=== PATIENT | male | born 1975 | race Caucasian/White ===

== ENCOUNTER 2017-07-11 19:04 | Observation (INO) | payer BC, OTHER ==
[2017-07-11] MEDS ORDERED: ASPIRIN 81 MG TAB.CHEW ONE (19:13)
[2017-07-11] MEDS ORDERED: ASPIRIN 81 MG TAB.CHEW PO ONE (19:33)
[2017-07-11 19:45] LABS: Hematocrit 41.5 % (42.0-52.0); Hemoglobin 14.8 gm/dL (13.5-18.0); Mean Corpuscular Hgb Conc 35.7 g/dl (32-36); Mean Platelet Volume 8.3 fl (6.0-9.5); Platelet Count 305 K/mm3 (150-450); Red Blood Count 4.77 M/mm3 (4.7-6.0); Red Cell Distribution Width 11.7 % (11.5-14.0); White Blood Count 11.3 K/mm3 (4.0-10.5)
[2017-07-11 19:47] LABS: Total Cells Counted 100
--- NOTE | 2017-07-11 19:54 | ERNOTE ---
Neuro HPI ER Record Date of Service: 07/11/17 Presenting Symptoms: weakness Time Seen by Provider: 07/11/17 19:20 Source: patient Exam Limitations: no limitations Immunizations: IMMUNIZATION HX Immunizations Up to Date Yes History of Influenza Vaccine No Allergies/Adverse Reactions: Allergies Allergy/AdvReac Type Severity Reaction Status Date / Time No Known Allergies Allergy Unverified 04/24/15 17:19 Home Medications: HOME MEDICATIONS Prilosec 08/08/16 [Last Taken Unknown] Ibuprofen 04/23/17 [Last Taken Unknown] - History of Present Illness Narrative: Pt. comesin with c/o weakness and pain of the R side of his body that lasted for 30 minutes then resolved then had weakness and pain on his L side and had a 5 minute episode of chest pain, pt. then had an episode on the R side again that lasted for over an hour. Each time the weakness comes on gradually then resolves gradually. Each time it is accompanied by pain. 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 Onset: gradual onset, intermittent, cannot confirm onset, gone now Severity: moderate - Character of Deficits New weakness: Present: RUE, RLE, LUE, LLE. Absent: facial (rt), facial (lt), general (diffuse), ascending Altered sensation: Absent: RUE, RLE, LUE, LLE, facial (rt), facial (lt) Additional Deficits: Present: vision problems, difficulty swallowing, decrease ability to stand, decrease ability to walk, weakness, off balance, cannot walk, cannot stand. Absent: impaired speech, falling, bed-ridden Baseline Cognition: Present: alert, oriented x 4 Baseline Gait: Present: walks w/o assistance Associated Symptoms: Reports: trouble concentrating, trouble thinking, other - anxiety. Denies: fever/chills, chest pain, neck/back pain, headache, fainting, seizure, altered mental status, disoriented, confused, agitated, decreased responsiveness Prior Treament: Reports: recently seen, treated by physician. Denies: recently hospitalized, similar symptoms before, currently on antibiotics Review of Systems - Review of Systems Constitutional: Present: weakness EYE: Present: no symptoms reported ENT: Present: no symptoms reported Respiratory: Present: no symptoms reported. Absent: shortness of breath, cough , wheezing Cardiology: Present: no symptoms reported. Absent: chest pain, palpitations, edema Gastrointestinal/Abdominal: Present: no symptoms reported. Absent: nausea, vomiting, diarrhea Genitourinary: Present: no symptoms reported Musculoskeletal: Present: muscle pain. Absent: muscle stiffness, neck pain, joint pain, joint swelling Skin: Present: no symptoms reported. Absent: rash, dryness, lesions, lumps Neurological: Present: no symptoms reported Endocrine: Present: no symptoms reported Hematologic/Lymphatic: Present: no symptoms reported Psych: Present: anxiety All Other Systems: All systems neg except as marked - Patient's Past Medical History Patient History - Medical: Anxiety, GERD, Other - vision difficulty L eye Patient History - Cardiac/Respiratory: No pertinent hx Patient History - Cancer: No Hx of Cancer Patient History - Surgical Procedures: No surgical history Patient History - Other: None - Social History Living Situations: home Abuse History: No History of abuse Psych History: No pertinent hx, Hx of Anxiety Smoking Status: Current some day smoker Alcohol Use: rarely Drug Use: none - Immunizations Immunizations Up to Date: Yes History of Influenza Vaccine: No Physical Exam - Physical Exam General Appearance: Present: wd/wn, alert, no apparent distress Head Exam: Present: normal inspection, no evidence of injury Eye Exam: Normal inspection: right, Other: left - fundoscopic exam reveals abnormality of optic nerve, not new for pt. Ears, Nose, Throat: Present: normal ENT inspection Neck: Present: normal inspection, nontender, supple, full range of motion Respiratory: Present: no respiratory distress, normal breath sounds, no accessory muscle use, chest nontender Cardiovascular/Chest: Present: regular rate, rhythm, no murmur, normal peripheral pulses Gastrointestinal/Abdominal: Present: normal bowel sounds, nontender, nondistended, soft, no organomegaly Back Exam: Present: normal inspection Extremity Exam: Present: normal inspection Neurological Exam: Present: alert, oriented, normal mood/affect, motor weakness - RUE and RLE str 3/4 LUE and LLE str 4/4 Skin Exam: Present: normal color, warm/dry [place] Coma Scale - Assess Eye Opening: Spontaneous Motor: Obeys Commands Verbal: Oriented - Total Coma Scale Total: 15 Initial Stroke Assessment - Date/Time of assessment Stroke Scale Date: 07/11/17 Stroke Scale Time: 19:52 - NIH Stroke Scale Level of Consciousness: Alert LOC Questions (Year and Age): Answers both correctly LOC Commands (open/close eyes/fist): Performs both correctly Lateral Gaze Paresis: None Visual Field Loss: Partial hemianopsia - L eye Facial Palsy: Normal movement Right Arm Motor (10 sec hold): No drift Left Arm Motor (10 sec hold): No drift Right Leg Motor (5 sec hold): No drift Left Leg Motor (5 sec hold): No drift Limb Ataxia (finger/nose heel/wiggins): Absent Sensory Loss (pinprick arms/legs/face): No sensory loss Language Aphasia (description/naming/reading): No aphasia; normal Dysarthria (speech clarity): Normal articulation Neglect Inattention (visual/tactile/auditory/spatial/person): No neglect Initial Stroke Scale Score:: 1 - Stroke Risk Assessment Stroke Risk Assessment Level: 1-4 Mild Impairment Stroke Inclusion/Exclusion Cri - Inclusion Questions: Yes Onset of symptoms <3 1/2 hours of admission to ETC: No - Exclusion Questions: Major symptoms rapidly improving: Yes Seizure at onset of stroke: No SBP>185; DBP>110 at time treatment is to begin: No Patient received Heparin or Coumadin within 48 hours: No Patient has elevated PTT or Protime/INR: No Stroke, head injury, major surgery, serious trauma in 3 mon.: No Previous intracranial hemmorhage: No Recent GA: No Known AV malformation or aneurysm: Yes Blood glucose <50mg/dl or >400mg/dl: No NIHSS Score <4 or >22 performed by physician: No ED Progress - Date and Time Seen: Date and Time: 07/11/172029 discussed case with Dr Nunez who recommends pt. to get CT tonight to rule out any acute abnormality and then be admitted for observation and get an MRI tomorrow as pt. likely is having MS flair (that is undiagnosed as of yet ) and then possibly start steroids and that the admitting doctor can consult the outpatient neurologist tomorrow but states that these doctors don't have privileges but can do a face to face consult with the attending. [id number] Discussed the above discussion with Dr denise as he is the physician on tomorrow to ensure that he is comfortable with this plan or if he would like us to follow a different plan and he agrres that pt. needs admission here and requested that we start pt. on solumedrol 25mg once tonight and 250mg once in the am and then he will see pt. in am and determine further care 2144 Discussed case with kaylin and she accepts admission and agrees with POC 07/11/17 22:03 - Results and Orders Patient's Lab Results:: I have reviewed the patient's lab results. - Vital Signs Patient's Vital Signs:: I have reviewed the patient's vital signs. Vital Signs: Vital Signs 07/11/17 07/11/17 19:12 19:37 Temperature 36.7 C Pulse Rate 99 93 Respiratory 15 14 Rate Blood Pressure 133/87 123/78 O2 Sat by Pulse 98 97 Oximetry - EKG EKG: NSR EKG read: Interp. by me - CT/Ultrasound CT/Ultrasound Narrative: CT head negative for any acute abnormality. - Progress/Reassessment Chief Complaint: Chest Pain Progress:: Unchanged Departure Clinical Impression: Demyelinating disease, Weakness - Departure Disposition: [facility] Condition: Fair Referrals: SARAH PARADA [Primary Care Provider] -
[2017-07-11 20:02] LABS: ALT 55 U/L (19-67); AST 30 U/L (0-48); Albumin * 3.7 gm/dl (3.4-5.0); Alkaline Phosphatase * 94 U/L (50-170); Anion Gap 9.8 mmol/L (6.8-13.8); BUN/Creatinine Ratio 14.5 (9.0-21.6); Bilirubin, Total 0.7 mg/dL (0.0-1.1); Blood Urea Nitrogen 17 mg/dL (6-23); Ca. Corrected For Albumin 8.3 mg/dL (8.4-10.2); Calcium * 8.4 mg/dL (7.9-10.9); Chloride 99 mmol/L (97-106); Glucose * 112 mg/dL (70-110); Potassium 3.8 mmol/L (3.4-4.6); Sodium 136 mmol/L (132-142); Total Protein 7.1 gm/dL (6.2-8.2)
[2017-07-11 20:05] LABS: Troponin I Less than 0.017 ng/ml (0.00-0.10)
[2017-07-11 20:09] LABS: Atypical (Reactive) Lymph 5 % (0-2); Basophil 1 % (0-1); Lymphocyte 48 % (20-51); Monocyte 6 % (0-9); Neutrophil 40 % (42-75); Neutrophil # 4.5 K/mm3 (1.3-6.0)
[2017-07-11 20:10] LABS: Dohle Bodies Trace; Platelet Estimate Normal (NORMAL); RBC Morphology Normal (NORMAL); Toxic Granulation Trace
[2017-07-11 21:31] LABS: Urine Bilirubin Negative (NEGATIVE); Urine Blood Negative /ul (NEGATIVE); Urine Ketone Negative (NEGATIVE); Urine Nitrite Negative (NEGATIVE); Urine Protein Negative (NEGATIVE); Urine Urobilinogen Normal (NORMAL)
[2017-07-11] MEDS ORDERED: METHYLPREDNISOLONE SOD SUCC/PF 125 MG/2 ML VIAL IV ONE (21:39)
[2017-07-11 21:46] LABS: Urine Appearance Clear; Urine Bacteria TRACE; Urine Color Yellow; Urine RBC None Seen /hpf (0-5); Urine WBC None Seen /hpf (0-5)
[2017-07-11] MEDS ORDERED: METHYLPREDNISOLONE SOD SUCC/PF 125 MG/2 ML VIAL ONE (21:47)
[2017-07-11 21:54] LABS: Cocaine Ur Negative (NEGATIVE); Urine Barbiturate Negative (NEGATIVE); Urine Benzodiazepines Negative (NEGATIVE); Urine Opiates Negative (NEGATIVE); Urine PCP Negative (NEGATIVE); Urine THC Negative (NEGATIVE)
--- NOTE | 2017-07-11 23:33 | HP ---
Chief Complaint - Chief Complaint Date of Service: 07/11/17 Time of Service: 23:33 Chief Complaint: Double vision, suddenly unable to walk History of Present Illness: 42 years old white male adm to the hospital with reports of sudden onset intermittent weakness, unable to walk and double vision left eye. PMh significant for anxiety, depression, GERD, granuloma annular and optic neuritis. per pt been dragging right leg due to weakness. The weakness would self resolved within 30 minutes only to re-occur in left leg. This was on- going most of the day for several hours. pt would attempt to stand and he would stumble over himself. Pt was concerned and brought him to the ER. He was recently diagnoses with demylenating disease, due to an earlier diagnosis of optic neuritis (in June 2016). He was instructed to have appt with specialist in [place] next month. - Patient's Past Medical History Patient History - Medical: Anxiety, Depression, GERD, Other - Optic neuritis, granuloma annulare Patient History - Cardiac/Respiratory: No pertinent hx, Other Patient History - Cancer: Other Patient History - Surgical Procedures: Orthopedic - Right knee meniscus repair, right shoulder arthroscopy Patient History - Other: None - Family History Mother Family History - Medical: Family History - Cardiac/Respiratory: Aneurysm - AAA, Coronary Heart Disease, Other Father Family History - Medical: , Diabetes Type 2 Family History - Cardiac/Respiratory: Coronary Heart Disease - s/p CABG, aortic valve replacement, Other Family History - Cancer: Lung, Prostate - Social History Living Situations: spouse Abuse History: No History of abuse Psych History: Hx of Anxiety, Hx of Depression Does anyone smoke in the home?: Yes Smoking Status: Current every day smoker Have you smoked in the past 12 months: Yes Do you dip or chew tobacco: No Patient requests Smoking Cessation Consult: Yes Initiate information on Smoking Cessation: Yes Alcohol Use: none Drug Use: none - Immunizations Immunizations Up to Date: Yes History of Influenza Vaccine: No Review Of Systems (GEN) - Review of Systems Generalized/Overall Review: Present: Weakness - RUE and RLE intermittent weakness thats unilateral. EENTM: Present: Eye Pain, Blurred Vision, Double Vision, Other - peripheral vision loss Respiratory: Present: No Symptoms Reported Cardiac: Present: No Symptoms Reported Abdominal: Present: No Symptoms Reported Genitourinary: Present: No Symptoms Reported Musculoskeletal: Present: Other - sudden weakness and unable to walk, Neurological: Present: Anxiety, Weakness - unilateral weakness thats been intermittent Skin: Present: No Symptoms Reported Endocrine: Present: No Symptoms Reported Immunizations: IMMUNIZATION HX Immunizations Up to Date Yes History of Influenza Vaccine No Allergies/Adverse Reactions: Allergies Allergy/AdvReac Type Severity Reaction Status Date / Time No Known Allergies Allergy Unverified 04/24/15 17:19 Home Medications: HOME MEDICATIONS Ibuprofen 800 mg PO Q6H PRN 07/11/17 [Last Taken Unknown] Omeprazole [Prilosec] 20 mg PO DAILY 07/11/17 [Last Taken Unknown] hydrOXYzine PAMOATE [Vistaril] 50 mg PO DAILY PRN 07/12/17 [Last Taken Unknown] Exam - Exam Vital Signs: Vital Signs - Last Taken Temp 36.5 C 07/11/17 22:26 Pulse 75 07/11/17 23:20 Resp 18 07/11/17 22:26 BP 115/90 07/11/17 22:26 Pulse Ox 96 07/11/17 22:26 Constitutional: Present: Alert, Oriented x3, Cooperative, No distress, Young ENT Exam: Present: hearing grossly normal Eye Exam: left eye: other - double vision, pain with eye movement, peripheral vision loss Neck: Present: full range of motion Back Exam: Present: normal inspection, no CVA tenderness Breasts: Present: Exam deferred Respiratory: Present: chest non-tender, lungs clear, normal breath sounds, no respiratory distress Cardiovascular/Chest: Present: normal peripheral pulses, regular rate, rhythm, no chest tenderness, no edema Peripheral Pulses: dorsalis-pedis (R): 3+, dorsalis-pedis (L): 3+ Abdomen: Present: Normal bowel sounds, soft, nontender, nondistended, no rebound tenderness /Rectal: Present: Exam deferred Extremity: Present: normal inspection, no pedal edema, calf tenderness - Right, other - RUE strength 3/5 RLE strength 3/5 weakness more so on right than left. Skin Exam: Present: normal color, warm/dry, no cyanosis Neurologic: Present: alert, normal mood/affect, oriented x 3, abnormal gait, motor weakness Appearance: Present: appropriate appearance, appropriate insight Eye contact: Present: cooperative, good eye contact Thoughts: Present: normal thought pattern, no apparent hallucination Diagnostic Studies: Laboratory Results WBC 11.3 K/mm3 (4.0-10.5) H 07/11/17 19:43 RBC 4.77 M/mm3 (4.7-6.0) 07/11/17 19:43 Hgb 14.8 gm/dL (13.5-18.0) 07/11/17 19:43 Hct 41.5 % (42.0-52.0) L 07/11/17 19:43 MCV 87.0 fl (78-100) 07/11/17 19:43 MCH 31.0 pg (27-31) 07/11/17 19:43 MCHC 35.7 g/dl (32-36) 07/11/17 19:43 RDW 11.7 % (11.5-14.0) 07/11/17 19:43 Plt Count 305 K/mm3 (150-450) 07/11/17 19:43 MPV 8.3 fl (6.0-9.5) 07/11/17 19:43 Neutrophils % (Manual) 40 % (42-75) L 07/11/17 19:43 Lymphocytes % (Manual) 48 % (20-51) 07/11/17 19:43 Monocytes % (Manual) 6 % (0-9) 07/11/17 19:43 Basophils % (Manual) 1 % (0-1) 07/11/17 19:43 Neutrophils # (Manual) 4.5 K/mm3 (1.3-6.0) 07/11/17 19:43 Lymphocytes # (Manual) 5.4 k/mm3 (1.5-3.5) H 07/11/17 19:43 Monocytes # (Manual) 0.7 k/mm3 (0.0-1.0) 07/11/17 19:43 Basophils # (Manual) 0.1 k/mm3 (0.0-0.1) 07/11/17 19:43 Atypic/Reactive Lymphs 5 % (0-2) H 07/11/17 19:43 Toxic Granulation Trace 07/11/17 19:43 Toxic Vacuolation Trace 07/11/17 19:43 Dohle Bodies Trace 07/11/17 19:43 Platelet Estimate Normal (NORMAL) 07/11/17 19:43 RBC Morphology Normal (NORMAL) 07/11/17 19:43 ESR 10 mm/hr (0-10) 07/11/17 19:43 Sodium 136 mmol/L (132-142) 07/11/17 19:43 Plasma Sodium 136 mmol/L (130-142) 07/11/17 19:43 Potassium 3.8 mmol/L (3.4-4.6) 07/11/17 19:43 Chloride 99 mmol/L (97-106) 07/11/17 19:43 Carbon Dioxide 31.0 mmol/L (24-32.6) 07/11/17 19:43 Anion Gap 9.8 mmol/L (6.8-13.8) 07/11/17 19:43 BUN 17 mg/dL (6-23) 07/11/17 19:43 Creatinine 1.17 mg/dL (0.4-1.4) 07/11/17 19:43 Est GFR (Non-Af Amer) 72 mL/min (60-130) 07/11/17 19:43 BUN/Creatinine Ratio 14.5 (9.0-21.6) 07/11/17 19:43 Random Glucose 112 mg/dL (70-110) H 07/11/17 19:43 Calcium 8.4 mg/dL (7.9-10.9) 07/11/17 19:43 Calcium Adj for Albumin 8.3 mg/dL (8.4-10.2) L 07/11/17 19:43 Total Bilirubin 0.7 mg/dL (0.0-1.1) 07/11/17 19:43 AST 30 U/L (0-48) 07/11/17 19:43 ALT 55 U/L (19-67) 07/11/17 19:43 Alkaline Phosphatase 94 U/L (50-170) 07/11/17 19:43 Troponin I Less than 0.017 ng/ml (0.00-0.10) 07/11/17 19:43 C-Reactive Prot, Quant 0.2 mg/dL (0.0-0.9) 07/11/17 19:43 Total Protein 7.1 gm/dL (6.2-8.2) 07/11/17 19:43 Albumin 3.7 gm/dl (3.4-5.0) 07/11/17 19:43 Urine Color Yellow 07/11/17 21:19 Urine Appearance Clear 07/11/17 21:19 Urine pH 6.0 pH (5.0-7.0) 07/11/17 21:19 Ur Specific [place] 1.020 SP.GR. (1.005-1.030) 07/11/17 21:19 Urine Protein Negative mg/dL (NEGATIVE) 07/11/17 21:19 Urine Glucose (UA) Negative mg/dL (NEGATIVE) 07/11/17 21:19 Urine Ketones Negative mg/dL (NEGATIVE) 07/11/17 21:19 Urine Blood Negative /ul (NEGATIVE) 07/11/17 21:19 Urine Nitrate Negative (NEGATIVE) 07/11/17 21:19 Urine Bilirubin Negative mg/dl (NEGATIVE) 07/11/17 21:19 Urine Urobilinogen Normal EU/dl (NORMAL) 07/11/17 21:19 Ur Leukocyte Esterase Negative /ul (NEGATIVE) 07/11/17 21:19 Urine RBC None seen /hpf (0-5) 07/11/17 21:19 Urine WBC None seen /hpf (0-5) 07/11/17 21:19 Ur Epithelial Cells Trace /hpf (0-5) 07/11/17 21:19 Urine Bacteria Trace (NONE) 07/11/17 21:19 Urine Culture Comments No culture indicated 07/11/17 21:19 Urine Opiates Screen Negative (NEGATIVE) 07/11/17 21:19 Barbiturate Screen Negative (NEGATIVE) 07/11/17 21:19 Ur Phencyclidine Scrn Negative (NEGATIVE) 07/11/17 21:19 Urine Amphetamine Positive (NEGATIVE) H 07/11/17 21:19 U Benzodiazepines Scrn Negative (NEGATIVE) 07/11/17 21:19 Urine Cocaine Screen Negative (NEGATIVE) 07/11/17 21:19 Urine Marijuana (THC) Negative (NEGATIVE) 07/11/17 21:19 CT head; No acute intra-cranial abnormality Assessment/Plan - Narrative Narrative: Demyelinating disease - suspicious for multiple sclerosis as pt reporting optic neuritis and sudden onset weakness. He was diagnosed with borderline MS and schedule for appt with specialist in [place] Jul 2017 CT head no acute intra-cranial abnormality Anticipate MRI with contrast spine Solumedrol 250mg IV x1 and give another dose in the morning neurologist was consulted from ER and plan for follow up tomorrow. Multiple sclerosis- suspicious Plan same as #1 Weakness- secondary to #1 & #2 Granuloma annular- stable Anxiety and depression- stable May continue with home medications Code status: Full GI ppx:protonix VTE ppx:Ambulate Time 45 minutes and case discussed with Dr. Chandler - Assessment/Plan (1) Anxiety and depression Problem: Chronic (2) Demyelinating disease Problem: Acute (3) Optic neuritis, left Problem: Chronic (4) Granuloma annulare Problem: Chronic (5) Multiple sclerosis Problem: Suspected
[2017-07-12] MEDS ORDERED: IBUPROFEN 800 MG TABLET PO SCH (00:30)
[2017-07-12] MEDS ORDERED: IBUPROFEN 800 MG TABLET PO PRN (00:55)
[2017-07-12] MEDS ORDERED: hydrOXYzine HCL 25 MG TABLET PO PRN (01:22)
[2017-07-12] MEDS ORDERED: hydrOXYzine PAMOATE 50 MG CAPSULE PO PRN (01:58)
[2017-07-12] MEDS: PANTOPRAZOLE SODIUM 20 MG TABLET.DR PO SCH (06:43)
[2017-07-12] MEDS ORDERED: METHYLPREDNISOLONE SOD SUCC/PF 125 MG/2 ML VIAL IV ONE (09:00)
[2017-07-12] MEDS ORDERED: METHYLPREDNISOLONE SOD SUCC 250 MG in NORMAL SALINE 50 ML IV ONE (10:30)
[2017-07-12] MEDS ORDERED: WATER FOR INJ BACTERIOSTATIC IV ONE (10:30)
[2017-07-12] MEDS ORDERED: METHYLPREDNISOLONE SOD SUCC IV ONE (10:30)
[2017-07-12] MEDS ORDERED: ONDANSETRON 8 MG TAB.RAPDIS PO PRN (18:43)
--- NOTE | 2017-07-12 19:04 | PN ---
Objective - Review of Systems Generalized/Overall Review: Reports: Weakness EENTM: Reports: Blurred Vision Respiratory: Reports: No Symptoms Reported Cardiac: Reports: No Symptoms Reported Abdominal: Reports: No Symptoms Reported Genitourinary Symptoms: Reports: No Symptoms Reported Musculoskeletal Complaints: Reports: Other - Leg weakness Neurological: Reports: Anxiety, Depressed, Weakness, Other - Mild spasticity. Denies: Headache, Numbness, Parasthesia, Seizure, Tingling, Tremors Skin: Reports: No Symptoms Reported Endocrine: Reports: No Symptoms Reported - Vitals Vitals: Last Vital Signs Temp 36.7 C 07/12/17 15:34 Pulse 80 07/12/17 15:34 Resp 22 H 07/12/17 15:34 BP 123/61 07/12/17 15:34 Pulse Ox 96 07/12/17 15:34 - Exam Exam Narrative: The MRI results show a stable brain with no increased bright young noted. There has been concern for MS but this exam does not confirm that. There is normal greater white matter ratio. The main finding is that of a Arnold Chiari type I malformation. Whether this is clinically significant and any explanation for his symptoms is unknown to me. He will need to see a neurologist on with this latest MRI information. Constitutional: Present: Alert, Oriented x3, Cooperative, Well developed, Well nourished, Middle aged ENT Exam: Present: normal ENT inspection, other - Marked decreased visual acuity presumably from optic neuritis. Neck: Present: non-tender, full range of motion, supple, normal inspection Breasts: Present: Nontender Respiratory: Present: chest non-tender, lungs clear, normal breath sounds, no respiratory distress, no accessory muscle use, respiratory distress. Absent: decreased breath sounds, rales, rhonchi Cardiovascular/Chest: Present: normal peripheral pulses, no chest tenderness, tachycardia Abdomen: Present: Normal bowel sounds, soft, nontender, nondistended, no rebound tenderness, no hepatospenomegaly, no masses /Rectal: Present: Exam deferred Extremity: Present: normal range of motion, non-tender, normal inspection, no pedal edema, no calf tenderness, normal capillary refill, pelvis stable Skin Exam: Present: normal color, warm/dry, no cyanosis, cool/dry Lymphatic: Present: no adenopathy Neurologic: Present: hot oiler II-XII nml as tested - Except visual acuity is impaired , alert, oriented x 3, abnormal cerebellar tests, abnormal gait, other - Irritable. He notes that he runs on a short fuse. Sleep disturbance where he' ll sleep an hour and sometimes be up for a couple hours before going back to bed and other times doesn't go back to bed and that he may sleep for several days in a row. Appearance: Present: appropriate appearance, appropriate insight, no memory impairment, denies illness Eye contact: Present: cooperative, good eye contact, normal speech Thoughts: Present: normal thought pattern, no apparent hallucination - However he was given some glasses that were bifocals and when a car go by [employer] through the blinds and think that he could see things that were not there at that time. He stopped wearing the glasses and that probably essentially went away. He denies any auditory hallucinations. Assessment/Plan Plan Narrative: Plan: Arrange for a neurology consultation 2. Discussed positive amphetamine in the urine 3. Up ad juvencio. and may ambulate to tolerance 4. Planned discharge tomorrow morning - Problems/Diagnosis (1) Optic neuritis, left Problem: Chronic (2) Arnold-Chiari malformation, type I Problem: Acute (3) Demyelinating disease Problem: Acute (4) Weakness Problem: Acute
[2017-07-13 03:03] VITALS: BP 101/60
[2017-07-13] MEDS: PANTOPRAZOLE SODIUM 20 MG TABLET.DR PO SCH (06:36)
--- NOTE | 2017-07-13 10:30 | DS ---
(1) Optic neuritis, left Problem: Chronic (2) Arnold-Chiari malformation, type I Problem: Acute (3) Demyelinating disease Problem: Acute (4) Weakness Problem: Acute Description of Stay: Hugo Thomas is a 42-year-old male admitted for lower extremity weakness and poor balance. He has a known optic neuritis and there is suspicion for demyelinating disease and possibly MS. He was seen in the emergency room and admitted to general medical floor because of his acute lower extremity weakness. He was given 250 mg of Solu-Medrol on admission and then repeated the following morning about 10:00 and after the second dose his symptoms began to improve. He has some spasticity with muscle activation. That too seems improved this morning. He has been up and about, has showered and is feeling stable on his feet. Yesterday morning he was still unstable but could walk by holding onto things. I had a long discussion with him last night about signs or symptoms of depression which she has exhibited many and I will start treatment on that as an outpatient. He also has a history of methamphetamine abuse and last used about a week ago but it is still showing up in his urine. Discussed the impact that could have on his demyelinating disease and he expresses understanding that he has to stop using Procedures Performed: none Discharge Disposition: Home self care Disposition: Home self-care Condition: Good Discharge Activity: Activity as tolerated Discharge Diet: General/regular food Referrals: SARAH PARADA [Primary Care Provider] - Problem Oriented Discharge Instructions to Patient/Family: Addiction and the Family, Paranoia Additional Patient Instructions (free text): Must discontinue methamphetamine permanently. Call Dr. Chandler or come to the emergency room if there is any suicidal tendencies. Keep your appointment 08/01 with the neurologist in [place]. Prescriptions (Any new or edited meds): FLUoxetine HCL [Prozac] 10 mg PO DAILY #6 capsule FLUoxetine HCL [Prozac] 20 mg PO DAILY #30 cap predniSONE [Prednisone] 10 mg PO DAILY #30 tablet Complete Home Medications List: Complete Home Medication List: Ibuprofen 800 mg PO Q6H PRN 07/11/17 Omeprazole [Prilosec] 20 mg PO DAILY 07/11/17 hydrOXYzine PAMOATE [Vistaril] 50 mg PO DAILY PRN 07/12/17 FLUoxetine HCL [Prozac] 10 mg PO DAILY #6 capsule 07/13/17 FLUoxetine HCL [Prozac] 20 mg PO DAILY #30 cap 07/13/17 Ondansetron [Zofran Odt] 8 mg PO Q6H PRN tab.rapdis 07/13/17 hydrOXYzine PAMOATE [Vistaril] 50 mg PO DAILY PRN capsule 07/13/17 predniSONE [Prednisone] 10 mg PO DAILY #30 tablet 07/13/17
== END 2017-07-13 11:12 | disposition home or self-care (01) ==
LOC: ER 19:04 → MS 21:56
PROVIDERS: ADMIT Family Medicine; ATTEND Family Medicine
DX: G36.0 Neuromyelitis optica [Devic] (principal); G93.5 Compression of brain; G37.9 Demyelinating disease of central nervous system, unspecified; R53.1 Weakness; K21.9 Gastro-esophageal reflux disease without esophagitis
CPT/HCPCS: 36415; 70450; 70553; 80053; 80307; 81001; 84484; 85025; 85652; 86140; 93005; 96365; 96375; 99285; G0378; G0480